=== PATIENT | female | born 1960 | race Caucasian/White ===

== ENCOUNTER → 2017-04-03 | Outpatient (CLI) | payer OTHER ==
--- NOTE | 2017-04-09 10:19 | RADIOLOGY REPORT PS360 ---
DIG MAMM-SCREEN IMPLANT W/CAD CAD Screening COMPARISON: Digital mammograms 01/13/2012 INDICATION: There is no personal or family history of breast cancer. The patient has bilateral breast implants. TECHNIQUE: Standard CC and MLO images were obtained. R2 CAD reviewed. FINDINGS: Standard MLO and CC views were obtained along with Alejandro views. Both breast implants appear intact with no evidence of leakage. Moderate heterogenic fiber glandular densities are seen in both breast as a new benign-appearing calcification right breast, there is no suspicious lesion and there are no suspicious microcalcifications. IMPRESSION: Stable exam no suspicious lesion seen recommend yearly follow-up BI-RADS CATEGORY: 2_Benign RECOMMENDED FOLLOWUP: 12M 12 MONTH FOLLOW-UP (A letter has been sent to the patient regarding results of the study.)
== END ==
LOC: RAD 03-31 09:00
DX: Z12.31 Encounter for screening mammogram for malignant neoplasm of breast (principal)
CPT/HCPCS: G0202

== ENCOUNTER 2017-05-25 08:06 | Day surgery (SDC) | payer OTHER ==
--- NOTE | 2017-05-25 09:47 | Operative Note ---
Colonoscopy ([facility]) Procedure date: 05/25/17 Date of : 58 Procedure:Colonoscopy Colonoscopy Indications: Mrs. Michelle is a 56-year-old female for routine screening colonoscopy. She does have a history of diverticulitis. She had a bout of diverticulitis 3-4 months ago. The patient did have a colonoscopy in 2008 and did have transverse colon polyps which were removed. The patient does have some chronic constipation. She reports no rectal bleeding, weight loss or family history of colon cancer. Performing Provider: Roma Vaughn MD Referrring Provider: Kenji Oliva M.D. Sedation: Fentanyl 100 mg IV/Versed 7 mg IV Procedure: Prior to the procedure, a history and physical exam was performed, and patient medications and allergies were reviewed. The risks and benefits of the procedure and the sedation options and risks were discussed with the patient. All questions were answered and informed consent was obtained. Patient identification and proposed procedure were verified by the physician and the nurse. The patient was placed in a left lateral decubitus position. Throughout the procedure, the patient's blood pressure, pulse, and oxygen saturations were monitored continuously. Findings: On digital rectal examination there was normal rectal tone. There were no external hemorrhoids. The colonoscope was introduced through the anal canal to the rectum and advanced to the cecum. The ileocecal valve and appendiceal orifice were identified. The scope was advanced a short distance into the ileum which appeared grossly normal. The scope was then withdrawn into the colon. The cecum, ascending and transverse colon and mucosa were grossly normal. There were scattered diverticuli throughout the descending and sigmoid colon (LEFT colon). The rectum itself was normal. Upon retroflexion within the rectum there were grade 1 internal hemorrhoids. Impressions: 1. Left-sided diverticulosis 2. Grade 1 internal hemorrhoids Recommendations: The patient will not require screening/surveillance colonoscopy again for 10 years by ACS guidelines. I would encourage a fiber bowel regimen on a long-term daily maintenance basis. Complications: None EBL (ml): 0 at 0946
[2017-05-25 13:52] VITALS: BP 116/74
== END 2017-05-25 10:50 | disposition home or self-care (01) ==
LOC: SDC 08:06
PROVIDERS: Internal Medicine Gastroenterology
PROC: 0DJD8ZZ Inspection of Lower Intestinal Tract, Via Natural or Artificial Opening Endoscopic (ICD-10-PCS; principal; 2017-05-25 09:00)
DX: Z12.11 Encounter for screening for malignant neoplasm of colon (principal); Z87.19 Personal history of other diseases of the digestive system; K59.09 Other constipation; K57.30 Diverticulosis of large intestine without perforation or abscess without bleeding; K64.0 First degree hemorrhoids; Z79.899 Other long term (current) drug therapy